=== PATIENT | female | born 1990 | race Caucasian/White ===

== ENCOUNTER 2017-12-11 11:45 | Outpatient (CLI) | END 2017-12-11 12:30 | disposition home or self-care (01) ==

== ENCOUNTER 2017-12-11 12:33 | Emergency (ER) | END 2017-12-11 14:23 | disposition home or self-care (01) ==

== ENCOUNTER 2018-01-21 20:28 | Outpatient (CLI) | END 2018-01-22 01:02 | disposition home or self-care (01) ==

== ENCOUNTER 2018-03-19 10:07 | Outpatient (CLI) | END 2018-03-19 11:57 | disposition home or self-care (01) ==